=== PATIENT | female | born 1990 | race Caucasian/White ===

== ENCOUNTER 2021-03-12 15:58 | Inpatient (IN) | payer OTHER ==
[~2021-03-12] VITALS: Ht 162.6 cm; Wt 117.0 kg
[2021-03-12 17:14] LABS: BASOPHIL 0.6 % (0-2); HCT 40.7 % (37.0-47.0); HGB 12.6 g/dl (12.5-16.0); LYMPHOCYTE 22.1 % (15-48); MCH 26.6 pg (25.0-31.0); MCV 85.9 fL (78.0-100.0); MONOCYTE 7.2 % (0-12); MPV 9.8 fL (6.0-9.5); NEUTROPHIL 66.6 % (41-80); NRBC 0; PLT 517 K/uL (150-400); RBC 4.74 M/uL (4.20-5.40); RDW 15.2 % (11.5-14.0); WBC 15.6 K/uL (4.0-10.5)
[2021-03-12 17:29] LABS: BUN/CREAT RATIO (CALC) 6.9 RATIO; CREATININE 0.58 mg/dL (0.51-0.95); POTASSIUM 3.7 mmol/L (3.5-5.1)
[2021-03-12 18:30] LABS: CORONAVIRUS 2019 SARS-COV-2 NEGATIVE (NEGATIVE); INFLUENZA A NAA NEGATIVE (NEGATIVE)
[2021-03-13 08:46] LABS: BASOPHIL 0.3 % (0-2); EOSINOPHIL 0 % (0-5); HCT 37.9 % (37.0-47.0); HGB 11.6 g/dl (12.5-16.0); LYMPHOCYTE 14.2 % (15-48); MCH 26.6 pg (25.0-31.0); MCHC 30.6 g/dL (32.0-36.0); MCV 86.9 fL (78.0-100.0); MONOCYTE 6.6 % (0-12); MPV 10.1 fL (6.0-9.5); NEUTROPHIL 77.8 % (41-80); NRBC 0; PLT 511 K/uL (150-400); RBC 4.36 M/uL (4.20-5.40); RDW 15.1 % (11.5-14.0); WBC 17.2 K/uL (4.0-10.5)
[2021-03-13 11:01] LABS: CREATININE 0.53 mg/dL (0.51-0.95); POTASSIUM 4.5 mmol/L (3.5-5.1)
[2021-03-14 02:15] LABS: B. PERTUSSIS DNA NOT DETECTED (NOT DETECT); CHLAMYDOPHILA PNEUMON DNA PCR NOT DETECTED (NOT DETECT); CORONAVIRUS 2019 PCR NOT DETECTED (NOT DETECTD); CORONAVIRUS 229E NOT DETECTED (NOT DETECT); CORONAVIRUS HKU1 NOT DETECTED (NOT DETECT); CORONAVIRUS NL63 NOT DETECTED (NOT DETECT); CORONAVIRUS OC43 NOT DETECTED (NOT DETECT); HUMAN METAPNEUMO NOT DETECTED (NOT DETECT); INFLUENZA A NOT DETECTED (NOT DETECT); INFLUENZA A 2009 H1N1 NOT DETECTED (NOT DETECT); INFLUENZA A H1 NOT DETECTED (NOT DETECT); INFLUENZA A H3 NOT DETECTED (NOT DETECT); INFLUENZA B NOT DETECTED (NOT DETECT); MYCOPLASMA PNEUMONIAE NOT DETECTED (NOT DETECT); PARAINFLUENZA 1 NOT DETECTED (NOT DETECT); PARAINFLUENZA 2 NOT DETECTED (NOT DETECT); PARAINFLUENZA 3 NOT DETETED (NOT DETECT); PARAINFLUENZA 4 NOT DETECTED (NOT DETECT)
[2021-03-14 03:59] LABS: RESPIRATORY SYNCYTIAL VIRUS NOT DETECTED (NOT DETECT)
[2021-03-14 06:37] LABS: BASOPHIL 0.2 % (0-2); EOSINOPHIL 0 % (0-5); HCT 34.4 % (37.0-47.0); HGB 10.5 g/dl (12.5-16.0); LYMPHOCYTE 8.7 % (15-48); MCH 26.5 pg (25.0-31.0); MCHC 30.5 g/dL (32.0-36.0); MCV 86.9 fL (78.0-100.0); MONOCYTE 3.7 % (0-12); MPV 10.3 fL (6.0-9.5); NRBC 0; PLT 494 K/uL (150-400); RBC 3.96 M/uL (4.20-5.40); RDW 15.4 % (11.5-14.0); WBC 25.3 K/uL (4.0-10.5)
[2021-03-14 07:31] LABS: ALBUMIN 2.7 g/dL (3.4-5.0); BILIRUBIN - TOTAL 0.1 mg/dL (0.2-1.0); BUN/CREAT RATIO (CALC) 23.1 RATIO; C-REACTIVE PROTEIN 1.6 mg/dL (<=0.90); CREATININE 0.52 mg/dL (0.51-0.95); GLOBULIN (CALCULATION) 5.1 g/dL; POTASSIUM 3.9 mmol/L (3.5-5.1); TOTAL PROTEIN 7.8 g/dL (6.4-8.2)
[2021-03-15 06:30] LABS: BASOPHIL 0.1 % (0-2); EOSINOPHIL 0 % (0-5); HCT 35.9 % (37.0-47.0); HGB 10.8 g/dl (12.5-16.0); LYMPHOCYTE 9.3 % (15-48); MCH 26.4 pg (25.0-31.0); MCHC 30.1 g/dL (32.0-36.0); MCV 87.8 fL (78.0-100.0); MONOCYTE 2.8 % (0-12); MPV 10.3 fL (6.0-9.5); NEUTROPHIL 86.6 % (41-80); NRBC 0; PLT 526 K/uL (150-400); RBC 4.09 M/uL (4.20-5.40); RDW 15.6 % (11.5-14.0); WBC 27.5 K/uL (4.0-10.5)
[2021-03-15 07:17] LABS: BUN 13 mg/dL (7-18); BUN/CREAT RATIO (CALC) 24.1 RATIO; C-REACTIVE PROTEIN <0.20 mg/dL (<=0.90); CHLORIDE 99 mmol/L (98-107); CO2 (BICARBONATE) 28 mmol/L (21-32); CREATININE 0.54 mg/dL (0.51-0.95); GLUCOSE 127 mg/dL (74-106)
[2021-03-15 15:08] LABS: IMMUNOGLOBULIN A, QN, SERUM 554 mg/dL (87-352); IMMUNOGLOBULIN G, QN, SERUM 1611 mg/dL (586-1602); IMMUNOGLOBULIN M, QN, SERUM 134 mg/dL (26-217)
[2021-03-16 08:10] LABS: HIV AB/P24 AG SCREEN Non Reactive (Non Reactive)
[2021-03-16 14:10] LABS: ORGANISM ID Not indicated. (.); SPECIMEN SOURCE Urine (.); STREPTOCOCCUS PNEUMONIAE AG Negative (Negative)
[2021-03-17] MEDS ORDERED: VENTOLIN (2.5 MG/0.5 INH ×2 (09:47→09:51)
[2021-03-17] MEDS ORDERED: VENTOLIN HFA IN18 GM INH (09:51)
[2021-03-17] MEDS ORDERED: PREDNISONE 20MG20 MG PO (09:51)
== END 2021-03-17 10:50 | disposition home or self-care (01) | DRG 196 ==
LOC: FER 15:58 → FTCU 03-13 03:00
PROVIDERS: Allergy & Immunology Allergy; Nurse Practitioner; Nurse Practitioner Family; ADMIT Internal Medicine
PROC: 5A0945A Assistance with Respiratory Ventilation, 24-96 Consecutive Hours, High Flow/Velocity Cannula (ICD-10-PCS; principal; 2021-03-14)
DX: J84.114 Acute interstitial pneumonitis (principal); J96.01 Acute respiratory failure with hypoxia; R65.11 Systemic inflammatory response syndrome (SIRS) of non-infectious origin with acute organ dysfunction; J12.9 Viral pneumonia, unspecified; J15.9 Unspecified bacterial pneumonia; J67.9 Hypersensitivity pneumonitis due to unspecified organic dust; J21.9 Acute bronchiolitis, unspecified; Z20.822 Contact with and (suspected) exposure to COVID-19; Z90.49 Acquired absence of other specified parts of digestive tract; Z87.891 Personal history of nicotine dependence
CPT/HCPCS: 36415; 36600; 71046; 71275; 80048; 80053; 82103; 82728; 82784; 82785; 82803; 83880; 84145; 85025; 85379; 86140; 87070; 87205; 87389; 94640; 94762; A4216; J0456; J0696; J1650; J2930; J7030; J7050; Q9967; U0002